=== PATIENT | female | born 1930 | race Caucasian/White ===

== ENCOUNTER 2017-03-17 06:46 | Emergency (ER) | payer MEDICARE, OTHER ==
[~2017-03-17] VITALS: Ht 152.4 cm; Wt 77.6 kg
--- NOTE | ~2017-03-17 | CT71 ---
[facility] A Service [facility] RADIOLOGY TEXT RESULTS PATIENT: LEVY ALEJANDRE V LOCATION: [facility] : 30 UNIT #: [id number] AGE: [address]: Jossue Starks MD SEX: F ORDER DR: [id number] [facility] [address] [place], [place] [address] [id number] E MR#: [id number] #: [id number] NAME: LEVY ALEJANDRE V. : 1930 SEX: F STUDY DATE/TIME: 03/17/2017 8:02 UNIT: [facility] ROOM: STUDY DESCRIPTION: CT Head Wo Contrast Attending Physician: Jossue Starks M.D. Ordering Physician: Jossue Starks M.D. Primary Care Physician: No Primary Care Physician MEDICAL IMAGING REPORT This report is preliminary unless electronic signature is present EXAM CT scan of the head without contrast. HISTORY Slurred speech starting today. COMPARISON 05/07/2010 TECHNIQUE Unenhanced images were obtained through the brain. This CT exam was performed with one or more of the following radiation dose reduction techniques: automatic exposure control, adjustment of mA and/or kV according to patient size, and iterative reconstruction. FINDINGS There is generalized atrophy with symmetric small vessel ischemic changes. There are no masses, extraaxial fluid collections, or hemorrhages. IMPRESSION Generalized atrophy. No acute findings. Dictated by... Rickie Rocha M.D. THIS IS AN ELECTRONICALLY VERIFIED REPORT Rickie Rocha M.D. at 03/17/2017 1:48 PM ULISES/janet TD: 03/17/2017 11:49 [facility] A Service [facility] RADIOLOGY TEXT RESULTS PATIENT: LEVY ALEJANDRE V LOCATION: [facility] : 30 UNIT #: [id number] AGE: [address]: Jossue Starks MD SEX: F ORDER DR: SAMARA #: [id number] MEDICAL IMAGING REPORT Page 1 of 1 COPY
--- NOTE | ~2017-03-17 | CR278 ---
[facility] A Service of [facility] RADIOLOGY TEXT RESULTS PATIENT: LEVY ALEJANDRE V LOCATION: [facility] : 30 UNIT #: [id number] AGE: [address]: Jossue Starks MD SEX: F ORDER DR: [id number] [facility] [address] [place], [place] [address] [id number] E MR#: [id number] Acc #: [id number] NAME: LEVY ALEJANDRE V. : 1930 SEX: F STUDY DATE/TIME: 03/17/2017 8:59 UNIT: [facility] ROOM: STUDY DESCRIPTION: CR Wrist 2 View Lt Attending Physician: Jossue Starks M.D. Ordering Physician: Jossue Starks M.D. Primary Care Physician: No Primary Care Physician MEDICAL IMAGING REPORT This report is preliminary unless electronic signature is present EXAM Left wrist. HISTORY Wrist pain and swelling. No known trauma. Onset today. TECHNIQUE 2 views left wrist were obtained. FINDINGS Generalized bony demineralization is noted. Degenerative changes are seen predominately involving the lateral aspect of the wrist where there is severe degenerative change at the first carpometacarpal joint and moderately severe degenerative change at the scaphotrapezial joint. There is no evidence of fracture. No destructive bone lesions are seen and no radiodense foreign bodies noted. Mild degenerative changes are seen along the radiocarpal joint line and chondrocalcinosis of the triangular fibrocartilage is noted. 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 No acute bony abnormalities are seen. Generalized bony demineralization is noted. Dictated by... Broderick Sethi M.D. THIS IS AN ELECTRONICALLY VERIFIED REPORT Broderick Sethi M.D. at 03/17/2017 4:57 PM RLF/gz TD: 03/17/2017 12:08 JOB #: [id number] [facility] A Service of [facility] RADIOLOGY TEXT RESULTS PATIENT: LEVY ALEJANDRE V LOCATION: [facility] #: [id number] : 30 UNIT #: [id number] AGE: [address]: Jossue Starks MD SEX: F ORDER DR: MEDICAL IMAGING REPORT Page 1 of 1 COPY
--- NOTE | ~2017-03-17 | CR72 ---
[facility] A Service of [facility] RADIOLOGY TEXT RESULTS PATIENT: LEVY ALEJANDRE V LOCATION: [facility] : 30 UNIT #: [id number] AGE: [address]: Jossue Starks MD SEX: F ORDER DR: [id number] [facility] [address] [place], [place] [address] [id number] E MR#: [id number] Acc #: [id number] NAME: LEVY ALEJANDRE V. : 1930 SEX: F STUDY DATE/TIME: 03/17/2017 7:17 UNIT: [facility] ROOM: STUDY DESCRIPTION: CR Chest Single View Portable Attending Physician: Jossue Starks M.D. Ordering Physician: Jossue Starks M.D. Primary Care Physician: No Primary Care Physician MEDICAL IMAGING REPORT This report is preliminary unless electronic signature is present EXAM Portable chest x-ray 03/17/2017. HISTORY Weakness. Slurred speech, short of air, weakness today. History of Alzheimer's. TECHNIQUE AP radiograph of the chest is presented. COMPARISON No comparisons. FINDINGS Degenerative changes in the spine. Marked degenerative change in the right shoulder. No acute-appearing bony abnormality. Mild cardiac enlargement. Mildly tortuous descending thoracic aorta. The descending thoracic aorta appears mildly prominent. Aortic ectasia or oly aneurysmal dilatation not excluded. The lungs are moderately well inflated without evidence of acute infectious or inflammatory disease, pleural effusion or pneumothorax. No suspicious nodule. Linear atelectasis or scarring left lung base. Calcified granuloma left lung base. Visualized upper abdomen unremarkable. Dictated by... Brijesh Franco M.D. THIS IS AN ELECTRONICALLY VERIFIED REPORT Brijesh Franco M.D. at 03/17/2017 2:30 PM CHACHO/marky TD: 03/17/2017 10:58 [facility] A Service of [facility] RADIOLOGY TEXT RESULTS PATIENT: LEVY ALEJANDRE V LOCATION: [facility] : 30 UNIT #: [id number] AGE: [address]: Jossue Starks MD SEX: F ORDER DR: JOB #: [id number] MEDICAL IMAGING REPORT Page 1 of 1 COPY
--- NOTE | ~2017-03-17 | EKG ---
PATIENT: LEVY ALJEANDRE UNIT #: [id number] Ventricular Rate: 102 BPM Atrial Rate: 102 BPM P-R Interval: 118 ms QRS Duration: 80 ms Q-T Interval: 348 ms QTC Calculation(Bezet): 453 ms P [place]: -10 degrees Calculated R [place]: 1 degrees Calculated T [place]: 16 degrees Diagnosis Line: Sinus tachycardia Diagnosis Line: Cannot rule out Inferior infarct , age Diagnosis Line: undetermined Diagnosis Line: Abnormal ECG Diagnosis Line: No previous ECGs available Diagnosis Line: Confirmed by KARAN PHELPS MD ([id number]) on Diagnosis Line: 03/17/2017 11:38:18 AM INTERPRETING MD: LENIN CARDENAS
[2017-03-17 07:48] LABS: BASOPHIL% 0.4 % (0-2.5); EOSINOPHIL% 0.1 % (0.0-7.0); HEMATOCRIT 41.1 % (35.0-45.0); HEMOGLOBIN 13.8 gm/dL (12.0-16.0); LYMPHOCYTE# 0.6 X10e3 (1.0-3.5); LYMPHOCYTE% 6.4 % (17.0-45.0); MEAN CELL VOLUME 90.9 FL (83-96); MEAN CORPUSCULAR HEMOGLOBIN 30.5 PG (28-34); MEAN CORPUSCULAR HGB CONC 33.6 g/dL (30-36); MEAN PLATELET VOLUME 8.2 FL (6.5-11.5); MONOCYTE# 1.1 X10e3 (0-1.0); MONOCYTE% 12.7 % (3.0-12.0); NEUTROPHIL% 80.4 % (40-75); PLATELET COUNT 148 X10e3 (140-420); RED BLOOD COUNT 4.52 X10e (3.90-5.30); RED CELL DISTRIBUTION WIDTH 14.8 % (11.0-15.5); WHITE BLOOD COUNT 8.7 X10e3 (4.0-10.5)
[2017-03-17 07:50] LABS: DIFF IND NO
[2017-03-17 08:16] LABS: INR 0.9; PARTIAL THROMBOPLASTIN TIME 27.3 SECONDS (23.5-31.3); PROTHROMBIN TIME (PATIENT) 9.9 SECONDS (10.0-11.7)
[2017-03-17 08:17] LABS: ALBUMIN SERUM 3.8 g/dL (3.5-5.0); BILIRUBIN, DIRECT 0.2 mg/dL (0.0-0.2); BILIRUBIN,INDIRECT 0.7 mg/dL (0.0-0.9); BILIRUBIN,TOTAL 0.9 mg/dL (0.2-2.0); BUN/CREATININE RATIO 15.45; CALCIUM SERUM 9.6 mg/dL (8.4-10.2); CREATININE SERUM 1.1 mg/dL (0.6-1.4); GLOM FILT RATE Estimated 45.4 mL/min (>60); POTASSIUM 3.7 mmol/L (3.5-5.1); PROTEIN TOTAL SERUM 6.9 g/dL (6.0-8.3)
[2017-03-17 09:45] LABS: URINE APPEARANCE HAZY; URINE BLOOD 1+ (NEG); URINE COLOR YELLOW; URINE GLUCOSE NORM (NORM); URINE KETONE 2+ (NEG); URINE LEUKOCYTE ESTERASE 2+ (NEG); URINE NITRATE POS (NEG); URINE PH 6.5 (5-8); URINE PROTEIN NEG (NEG); URINE SPECIFIC GRAVITY 1.015 (1.003-1.035); URINE UROBILINOGEN 4 MG/DL (NORM)
[2017-03-17 09:55] LABS: URINE BILIRUBIN NEG (NEG)
[2017-03-17 09:56] LABS: URINE SOURCE CATH
[2017-03-17 10:16] LABS: CULTURE INDICATED? YES; URBCS1 AUWI 0-2 /[HPF] (0-2); URINE AMORPHOUS SEDIMENT AMORP URATES; URINE BACTERIA AUWI 1+ (NEGATIVE); URINE YEAST PRESENT; UWBCS1 AUWI 25-50 (0-5)
== END 2017-03-17 14:16 | disposition home or self-care (01) ==
LOC: CED 06:46
PROVIDERS: Emergency Medicine
DX: F03.90 Unspecified dementia, unspecified severity, without behavioral disturbance, psychotic disturbance, mood disturbance, and anxiety (principal); N39.0 Urinary tract infection, site not specified; K21.9 Gastro-esophageal reflux disease without esophagitis
CPT/HCPCS: 36415; 70450; 71010; 73100; 80048; 80076; 80164; 81003; 82947; 85025; 85610; 85730; 87086; 93005; 96374; 99285; J0696